=== PATIENT | male | born 1960 | race African-American/Black ===

== ENCOUNTER 2021-10-16 12:24 | Emergency (ER) | payer OTHER ==
[~2021-10-16] VITALS: Ht 177.8 cm; Wt 75.0 kg
[2021-10-16] MEDS ORDERED: ACETAMINOPHEN 500MG TABLET PO ONE (13:00)
[2021-10-16 14:22] VITALS: BP 130/85
== END 2021-10-16 14:26 ==
LOC: ER 12:24
DX: M25.561 Pain in right knee (principal); J44.9 Chronic obstructive pulmonary disease, unspecified; I10 Essential (primary) hypertension
CPT/HCPCS: 73562; 99283